=== PATIENT | male | born 1990 | race Asian ===

== ENCOUNTER → 2017-06-20 | Emergency (ER) | payer OTHER ==
[~2017-06-20] VITALS: Ht 167.6 cm; Wt 84.8 kg
[2017-06-20 14:27] VITALS: BP 117/75
--- NOTE | 2017-06-21 23:50 | Emergency Room Report ---
History of Present Illness General Chief Complaint: Pain Source: Caregiver Present Illness HPI 19-year-old male presents to ED for evaluation. Narcotics And Vice Detective at bedside states that patient has "stage IV lesions" in his mouth and is having pain. Patient is having difficulty swallowing and eating. Patient has cognitive delay and is currently in a care facility. Narcotics And Vice Detective states patient has had these lesions his mouth for many months now. Patient was seen by ENT and was diagnosed with squamous cell carcinoma. Patient was prescribed pain medications but retail inventory control clerk states they are not helping. No other aggravating relieving factors. Denies any other associated symptoms Allergies: Coded Allergies: No Known Allergies (Unverified , 06/20/17) Patient History Past Medical History: other - cognitive delay Past Surgical History: none Pertinent Family History: none Social History: Denies: smoking, alcohol use, drug use Immunizations: UTD Reviewed Nursing Documentation: PMH: Agreed, PSxH: Agreed Nursing Documentation-PMH Past Medical History: No History, Except For Hx Cardiac Problems: No - ADHD and AUTISM Review of Systems All Other Systems: limited Physical Exam Vital Signs Date Time Temp Pulse Resp B/P (MAP) Pulse Ox O2 Delivery O2 Flow Rate FiO2 06/20/17 14:27 97.2 92 16 117/75 97 Room Air Sp02 EP Interpretation: reviewed, normal General Appearance: no apparent distress, alert, GCS 15, non-toxic Head: normocephalic Eyes: bilateral eye normal inspection, bilateral eye PERRL ENT: other - ulcerative lesion on tongue Neck: normal inspection Respiratory: normal inspection Cardiovascular #1: normal inspection Gastrointestinal: normal inspection Rectal: deferred Genitourinary: no CVA tenderness Musculoskeletal: normal inspection Neurologic: alert, oriented x3, responsive, motor strength/tone normal, sensory intact, speech normal Psychiatric: normal inspection Skin: normal inspection Lymphatic: normal inspection Medical Decision Making Diagnostic Impression: Primary Impression: Tongue lesion ER Course Hospital Course 27 yo M presents to ED c/o pain in his mouth Differential diagnoses include: URI, pharyngitis, otitis media Clinical course Patient placed on stretcher. After initial history, physical exam reveals a male in no acute distress. Bilateral TM unremarkable. Patient has cognitive delay is not open his mouth completely on exam. However I am able to visualize ulcerative lesion on the tip of the tongue. Narcotics And Vice Detective provides paperwork from ENT with diagnosis of squamous cell carcinoma. Patient has been prescribed OxyContin without significant relief. I explained to the retail inventory control clerk there is nothing stronger I can prescribe. I explained that there is no further intervention from the ER standpoint. Patient has been already evaluated by the specialist (ENT); coordination of care plan between the PMD and ENT is required retail inventory control clerk displays understanding Diagnosis - tongue lesion Stable and discharged home. continue medications as prescribed. Instructed to followup with PMD/ENT. return to ED if symptoms recur or worsen Last Vital Signs Date Time Temp Pulse Resp B/P (MAP) Pulse Ox O2 Delivery O2 Flow Rate FiO2 06/20/17 14:27 97.2 92 16 117/75 97 Room Air Status: improved Disposition: HOME, SELF-CARE Condition: Stable Referrals: [facility],REFERRING (PCP) Patient Instructions: Squamous Cell Carcinoma Additional Instructions: follow up with PMD/ENT JOSE M JIMENEZ M.D. Jun 21, 2017 23:50
== END | disposition home or self-care (01) ==
LOC: EMR 14:44
DX: K13.70 Unspecified lesions of oral mucosa (principal)
CPT/HCPCS: 99282